=== PATIENT | female | born 1970 | race Caucasian/White ===

== ENCOUNTER 2017-02-03 15:46 | Emergency (ER) | payer SELFPAY ==
[2017-02-03 16:42] LABS: Bilirubin Negative (Negative); Blood, Urine Large (Negative); Clarity Turbid (Clear); Glucose, Urine (Dipstick) Negative (Negative); Leukocyte Trace (Negative); Nitrite Negative (Negative); Protein, Urine (Dipstick) 100 mg/dL (Neg-Trace); Specific Gravity, Urine 1.025 (1.005-1.030)
[2017-02-03 16:46] LABS: RBC/HPF GREATER THAN 50-TNTC HPF (0-3); WBC/HPF 0-3 HPF (0-3)
[2017-02-03 16:47] LABS: Bacteria/HPF Rare-Few HPF (None Seen)
== END 2017-02-03 17:05 | disposition home or self-care (01) ==
LOC: BURERS 15:46
DX: R03.0 Elevated blood-pressure reading, without diagnosis of hypertension (principal); M54.5 Low back pain; F17.210 Nicotine dependence, cigarettes, uncomplicated
CPT/HCPCS: 81003; 81015; 93005

== ENCOUNTER 2017-09-27 17:53 | Emergency (ER) | payer BC, SELFPAY ==
[2017-09-27] MEDS ORDERED: traMADol HCl 50 MG TAB ONE (18:12)
== END 2017-09-27 18:14 | disposition home or self-care (01) ==
LOC: BURERS 17:53
DX: T63.481A Toxic effect of venom of other arthropod, accidental (unintentional), initial encounter (principal); F17.210 Nicotine dependence, cigarettes, uncomplicated
CPT/HCPCS: 99406

== ENCOUNTER 2017-12-12 19:57 | Emergency (ER) | payer BC | END 2017-12-12 20:20 | disposition home or self-care (01) | LOC: BURERS 19:57 | DX: J11.1 Influenza due to unidentified influenza virus with other respiratory manifestations (principal); F17.210 Nicotine dependence, cigarettes, uncomplicated | CPT/HCPCS: 99283 ==

== ENCOUNTER 2018-01-29 20:32 | Emergency (ER) | payer BC ==
[2018-01-29] MEDS ORDERED: Bupivacaine 0.5% 10 ML VIAL ONE (20:47)
[2018-01-29] MEDS ORDERED: AMOXicillin 250 MG CAP ONE (20:49)
== END 2018-01-29 20:56 | disposition home or self-care (01) ==
LOC: BURERS 20:32
DX: K04.7 Periapical abscess without sinus (principal); F17.210 Nicotine dependence, cigarettes, uncomplicated; Z79.899 Other long term (current) drug therapy; Z79.1 Long term (current) use of non-steroidal anti-inflammatories (NSAID)
CPT/HCPCS: 99282; J3490

== ENCOUNTER 2018-09-13 18:44 | Emergency (ER) | payer BC, SELFPAY ==
[2018-09-13] MEDS ORDERED: Ketorolac Tromethamine 30 MG/ML VIAL ONE (19:10)
[2018-09-13] MEDS ORDERED: Metoclopramide HCl 10 MG/2 ML VIAL ONE (19:10)
== END 2018-09-13 20:12 | disposition home or self-care (01) ==
LOC: BURERS 18:44
DX: R51 Headache (principal); F17.210 Nicotine dependence, cigarettes, uncomplicated
CPT/HCPCS: 96374; 96375; J1885; J2765

== ENCOUNTER 2020-12-15 20:48 | Emergency (ER) | payer OTHER, SELFPAY ==
[2020-12-15] MEDS ORDERED: Ibuprofen 800 MG TAB ONE (21:14)
== END 2020-12-15 21:15 | disposition home or self-care (01) ==
LOC: BURERS 20:48
DX: M25.572 Pain in left ankle and joints of left foot (principal); F17.210 Nicotine dependence, cigarettes, uncomplicated